=== PATIENT | male | born 1990 | race Hispanic/Latino ===

== ENCOUNTER 2023-08-01 14:09 | Emergency (ER) | payer SELFPAY ==
[2023-08-01 14:14] VITALS: BP 133/71; PULSE 75; RESP 16; TEMP 36.2; O2SAT 100; BMI 22.8
--- NOTE | 2023-08-01 14:43 | EDS_ITS ---
HPI HPI - URI History of Present Illness Chief Complaint: Ear Problem Detail of Chief Complaint: Right ear discomfort and decreased hearing Informant: patient Narrative Narrative: Patient presents to the emergency department complaining of discomfort to the right ear and pressure and decreased hearing for about 5 days. Patient states that he flew back 6 days ago from [place] and since that time he had some p ressure in the ear. He went to the pharmacy and was told to use some loratadine which she has been using but has not had much relief. He does not have a lot of pain just some mild discomfort and pressure and may be some slight decreased hearing in the right ear. Patient states that he had a cold a little over a week ago and he feels much better regarding those symptoms. He has had no fevers or chills or sweats. No bleeding from the ear no drainage from the ear. ROS ROS ED Review of Systems ROS Unobtainable: other Constitutional Constitutional ED: Reports lethargy; Denies chills, fever(s), sweats or weight loss Eyes Eyes: Denies blurry vision, change in vision or diplopia ENT ENT ED: Reports other Details: Right ear pain ; Denies rhinorrhea or sore throat Cardiovascular Cardiovascular: Denies chest pain, orthopnea or racing heartbeat Respiratory/Chest Respiratory/Chest: Denies cough, dyspnea, dyspnea on exertion, orthopnea or sputum Gastrointestinal Gastrointestinal: Denies abdominal pain, diarrhea, nausea or vomiting Genitourinary Genitourinary ED: Denies dysuria, hematuria or urinary frequency Musculoskeletal Musculoskeletal: Denies arthralgias, back pain, myalgias or neck pain Integumentary Denies abscess, Abrasions or rash Neurologic Neurologic: Denies headache(s) or weakness Psychiatric Psychiatric: Denies anxiety, depression or suicidal thoughts Endocrine Endocrinology: Denies polydipsia, polyphagia or polyuria Hematologic/Lymphatic Hematologic/Lymphatic: Denies easy bleeding, easy bruising or lymphadenopathy Allergic/Immunologic Allergic/Immunologic ED: Denies mouth swelling, tongue swelling or urticaria PFSH PFSH Medical History no medical history Allergy/AdvReac Type Severity Reaction Status Date / Time No Known Allergies Allergy Verified 08/01/23 14:16 Social History Smoking Status: Never smoker EXAM Physical Exam Const Vital Signs: 08/01/23 14:14 Temperature 97.1 F L Temperature Source Temporal Pulse Rate 75 Respiratory Rate 16 Blood Pressure 133/71 H Blood Pressure Mean 91 Pulse Ox 100 Oxygen Delivery Method Room Air Positive well nourished and well developed General Appearance ED: well developed and NAD HEENT Reports TM's clear and moist mucous membranes HEENT Narrative: Right ear-patient has maybe some slight bulging of the right TM with clear fluid. There is no signs of infection. No perforation. Ear canal appears normal. There is no pain with traction on the pinna. There is no drainage from the ear canal. normocephalic and atraumatic; Negative for trauma or tenderness Tympanic Membrane ED: Yes TM's clear Eyes PERRL and EOMs intact bilaterally General Eye ED: Negative for pale conjunctiva or scleral icterus Neck no lymphadenopathy, supple and no JVD General: Negative for tenderness Chest Wall inspection of chest normal and palpation of chest normal Chest: Negative for tenderness Resp normal respiratory effort and clear to auscultation bilaterally Effort and Inspection: Negative for respiratory distress or pain with movement Auscultation: Negative for rhonchi, wheezes or diminished lung sounds Cardio regular rate, regular rhythm, S1 normal heart sound, S2 normal heart sound and no murmurs Peripheral Pulses: pulses 2+ throughout GI normal to inspection, nondistended, normoactive bowel sounds, soft to palpation, non-tender, non-distended and no masses Back/Spine no CVA tenderness and no thoracic nor lumbar tenderness Extremity normal to inspection General Extremety ED: Negative for edema General Extremity: Negative for edema Neuro oriented x3, CN's II-XII intact bilaterally, no sensory deficits noted and gait normal Sensorium / Orientation: awake, alert, oriented to person, oriented to place and oriented to time Motor Exam: strength 5/5 throughout and strength abnormal Psych mental status grossly normal Skin no rashes or lesions noted and no wounds MDM MDM MDM Narrative Medical decision making narrative: Patient with right ear discomfort and decreased hearing. On exam no signs of infection. I suspect likely eustachian tube dysfunction. Patient advised to continue with loratadine. Will refer to ENT for follow-up. Discharge Plan Triage Chief Complaint: Ear Problem ED Provider: Hannah Campbell Dx/Rx/DC Orders Clinical Impression: Acute dysfunction of eustachian tube, Acute pain of right ear Instructions: ED Earache Without Infection (Adult) Primary Care Provider: Care Physician,No Primary Referrals: Lucian Schwartz MD [Med Staff - Active Staff] - 3-5 Days NOT,DEFINED [Non-Staff] - Disposition Disposition: Home, Self Care Discharge Date/Time: 08/01/23 15:03
== END 2023-08-01 15:03 | disposition home or self-care (01) ==
PROVIDERS: Emergency Provider Emergency Medicine; Visit Provider Emergency Medicine
DX: H91.90 Unspecified hearing loss, unspecified ear (principal); H92.01 Otalgia, right ear; H69.91 Unspecified Eustachian tube disorder, right ear
CPT/HCPCS: 99282